=== PATIENT | female | born 1990 | race Caucasian/White ===

== ENCOUNTER 2016-07-29 17:44 | Emergency (ER) | payer OTHER ==
[~2016-07-29] VITALS: Ht 165.1 cm; Wt 80.7 kg
[~2016-07-29 17:44] MED LIST: ALPR-411 PO; BCPILLS PO; OMEP40CA PO
[2016-07-29 17:46] VITALS: BP 130/82; PULSE 82; TEMP 36.6; O2SAT 96; Ht 165.1 cm; Wt 80.7 kg
[2016-07-29] MEDS ORDERED: CETI10TA84 PO (18:23)
[2016-07-29] MEDS ORDERED: OMEP40CA41 PO (18:23)
[2016-07-29] MEDS ORDERED: AMPH20TA2 PO (18:23)
[2016-07-29] MEDS ORDERED: MOME6000 NAE (18:23)
[2016-07-29] MEDS ORDERED: TOPI25TA99 PO (18:23)
[2016-07-29] MEDS ORDERED: ALBU18002 INH (18:23)
[2016-07-29] MEDS ORDERED: AMPH30CA3 PO (18:23)
--- NOTE | 2016-07-29 18:52 | EMERGENCY ROOM VISIT NOTE ---
History First contact with patient: 17:49 Chief Complaint: MEDICATION REFILL REQUEST Stated Complaint: OUT OF MEDS History of Present Illness The patient is a 26 year old female who presents to the Emergency Room via private vehicle with complaints of "medication refill request, out of meds". The patient states that she is in search of an emergency supply of Adderall so that she can make it home to [place]. She states that she is a [employer] student, and had just finished a neuropsychiatric testing today at [facility] and is to get the results back tomorrow. She states that she met with the [facility] today and her doctor there was hesitant to prescribe her Adderall. She states that she did call all of the psychiatrists in the area and they're booked until September. She states that the urgent cares are not able to refill her medication. She states that her doctor back home typically gives her 3 month supply at a time, but in 3 separate prescriptions. She states that she ran out of her last prescription last month. She states that she tried to see her doctor last week by driving home to [place] and had missed the appointment by approximately 10 minutes. She states that the doctor did not agree to write a prescription unless he was able to see her. She then states that the doctor back in [place] it is no longer able to write for these medications. She is unsure why. 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 She says she takes 30 mg in the morning, 40 mg in the p.m. of Adderall. She denies any other complaints or concerns today. She states she is just here for medication refill. Review of Systems A complete 6-point Review of Systems was discussed with the patient, with pertinent positives and negatives listed in the History of Present Illness. All remaining Review of Systems questions can be considered negative unless otherwise specified. Past Medical/Surgical History Medical Problems: (1) ADHD (attention deficit hyperactivity disorder) (2) Anxiety (3) Asthma (4) Bulimia nervosa (5) Depression (6) GERD (gastroesophageal reflux disease) (7) IBS (irritable bowel syndrome) (8) Migraine Surgical Problems: (1) History of abdominoplasty (2) History of cholecystectomy (3) History of tonsillectomy and adenoidectomy Family History No pertinent family history at this time. Social History Smoking Status: Former Smoker Marital Status: single Occupation Status: student Social History: Patient is a [employer] student. Current/Historical Medications Scheduled Amphetamine-Dextroamphetamine 20MG (Adderall 20MG), 20 MG PO BID Amphetamine-Dextroamphetamine 30MG (Adderall Xr 30MG), 30 MG PO QAM Control Pills ( Control Pills), 1 TAB PO DAILY Cetirizine (Zyrtec), 10 MG PO DAILY Omeprazole (Prilosec), 40 MG PO DAILY Topiramate (Topamax ), 25 MG PO HS Scheduled PRN Albuterol Sulfate (Proair Respiclick), 2 PUFFS INH UD PRN for Asthma Symptoms Mometasone Furoate (Nasal) (Mometasone Furoate), 2 SPRAYS HUONG UD PRN for Allergy Symptoms Allergies Coded Allergies: No Known Allergies (Unverified , 07/20/15) Physical Exam Vital Signs Date Time Temp Pulse Resp B/P Pulse Ox O2 Delivery O2 Flow Rate FiO2 07/29/16 17:46 36.6 82 20 130/82 96 Room Air Physical Exam VITAL SIGNS - Vital signs and nursing notes were reviewed. Patient is afebrile , normotensive, non-tachycardic and is saturating well on room air 96%. GENERAL -26-year-old female appearing her stated age who is in no acute distress. Communicates well with provider and answers questions appropriately. SKIN - Without rashes. No petechial rashes. HEAD - NC/AT. EYES - Sclera anicteric. Palpebral conjunctiva pink and moist with no injection noted. EARS - No deformities of external structures noted on gross examination bilaterally. NOSE - Midline and without cyanosis. No epistaxis or purulent drainage noted. MOUTH/OROPHARYNX - Without perioral cyanosis. PSYCH: Patient is cooperative and attentive. She indicates well with provider. Medical Decision & Procedures Medical Decision Patient was seen and evaluated as above. Previous visits were reviewed. The patient does have a previous visit history of medication refill requests on 2 other separate occasions for Adderall. One of which she was granted the medication the other which she was denied. The [employer] drug monitoring system was utilized and it was found that the patient does have a current prescription for Adderall, of which she filled on July 04. This was for 30 days. Today is July 29, 30 days have not passed. I asked the patient how she was out of medication when this indicates that she should still have some left. She then admitted that she at times will take extra amounts of the Adderall. She then stated that sometimes she'll fill a prescription later than the others. I then asked her about the 30 mg tablets as they are not evident in the pants of any drug monitoring system. She then stated that she may fill that back in [place]. I informed her that although the medication is prescribed her to treat narcolepsy caused by Lyme disease as well as ADHD, a third visit to the emergency Department for an emergency refill requests of the same medication, of which the 2 previous visits indicated that they Adderall may have been stolen is very concerning. I then informed her that the emergency department typically does not refill medication such as this as it is a controlled substance, and has a high abuse potential. I did however offer her potential help from our field nurse case manager in establishing a local psychiatrist. She then informed me that she'll be leaving [employer] permanently in a few weeks and would packing up and moving back to [place]. At this time I tried every Avenue to help the patient other than providing her the medication. She then requested to speak with my ethylbenzene cracking supervisor, therefore Dr. Luna also spoke with the patient. I did thoroughly discuss the patient case with him. He also was in agreement that it would be inappropriate to provide the patient with a refill of this medication at this time. I then went to discuss with the patient importance of follow-up back in [place] however I went back to the room she was no longer present. The patient has left without her discharge instructions as well as further information regarding her visit today. I am concerned that the patient is experiencing drug seeking behavior, particularly because this is her third request for refill on an emergency basis of the same medication within the same calendar year. Impression Primary Impression: Encounter for medication refill Departure Information Dispostion Home / Self-Care Condition GOOD Referrals No Doctor, Assigned (PCP) Patient Instructions My [facility] Additional Instructions You were seen in the emergency Department for a refill of your Adderall. As we discussed, at this time we do not feel comfortable providing you with a refill of this medication, as we discussed this is a highly controlled substance , and unfortunately this is your third visit to the emergency department for refill of this medication. As I discussed, I would be more than happy to help facilitate psychiatric follow -up, but as you indicated you will be moving back to [place], it is recommended that you seek follow-up with [facility] services prior to departure as well as seek long-term care in [place] as you have indicated. Please feel free to return to the emergency department with any new/concerning symptoms.
--- NOTE | 2016-07-29 18:57 | EMERGENCY ROOM VISIT NOTE ---
ED Visit Note First contact with patient: 17:49 The patient was seen and examined with Vik Myrick PA-C. I agree with the history, physical and findings. Please see the note for disposition and details. The patient is requesting a refill of her Adderall prescription. This is the third visit in a calendar year for the patient requesting Adderall. Vik had reviewed the PDMP and noted that the patient was out of her medications sooner than scheduled. The patient had admitted that she took more than prescribed on several occasions. She notes that her primary provider of this medication in [place] had just lost his license for controlled substances for some unknown reason. She tried to go to [facility] for this medication but was referred to psychiatry. Despite explaining the reasoning for refusing to refill the Adderall by Vik and myself after lengthy conversations the patient still continued to request that we make an exception. Given the facts of this case and the controlled substance nature of the Adderall it would be inappropriate at this juncture to refill or extend her current prescription. I counseled the patient extensively on the need to secure her medication, take it just as prescribed, and have a primary single provider monitor the medication usage and refill. I gave my usual and customary discussion regarding this issue. Prior to receiving discharge instructions the patient eloped from the department.
== END 2016-07-29 19:00 | disposition home or self-care (01) ==
LOC: C.EDB 17:45 → C.EDD 19:00
DX: Z76.0 Encounter for issue of repeat prescription (principal); F90.9 Attention-deficit hyperactivity disorder, unspecified type; F41.9 Anxiety disorder, unspecified; J45.909 Unspecified asthma, uncomplicated; F50.2 Bulimia nervosa; F32.9 Major depressive disorder, single episode, unspecified; K21.9 Gastro-esophageal reflux disease without esophagitis; K58.9 Irritable bowel syndrome, unspecified; Z90.49 Acquired absence of other specified parts of digestive tract; Z87.891 Personal history of nicotine dependence; Z79.3 Long term (current) use of hormonal contraceptives; Z79.899 Other long term (current) drug therapy